=== PATIENT | female | born 1945 | race Caucasian/White ===

== ENCOUNTER 2017-01-17 19:36 | Emergency (ER) | payer MEDICARE, BC ==
[2017-01-17 19:43] VITALS: BP 145/109
[2017-01-17] MEDS ORDERED: traMADol 50 MG Tab PO ONE (20:26)
--- NOTE | 2017-01-17 20:32 | EDM.PDOC ---
ED HPI GENERAL MEDICAL PROBLEM - General Chief Complaint: Lower Extremity Injury/Pain Stated Complaint: [facility] Time Seen by Provider: 01/17/17 19:47 Source of Information: Reports: Patient, Family (), RN Notes Reviewed History Limitations: Reports: No Limitations - History of Present Illness INITIAL COMMENTS - FREE TEXT/NARRATIVE: The patient's history is somewhat limited, as she did not bring her paperwork that documents past medical history, nor her medication list. The patient states that she has had right knee pain since 2015. She was told in July 2015 that she had a Merida's cyst, however, this was a presumptive diagnosis, as no imaging study had been performed. She did not follow-up with her PCP or an Orthopedic Surgeon. She states that she went to the [facility] walk[facility] about one month ago. Again, no tests were done, but the patient was given prescriptions for a pain medication (whose name she cannot recall) and an anti-inflammatory medication ( whose name she cannot recall). She states that neither of these helped. She states that she has an appointment to see Dr. Plummer, and Orthopedic Surgeon in [place], but cannot get in to see him until mid-January. While the patient acknowledges that she has chronic right lower extremity pain, she states that it is much worse today. She states that she has pain running from her buttock to her toes. The pain is made worse with walking. She states that she does not flex at the hip. No recent injury. She states that the pain that she is experiencing today is the same pain that she had when she was told that she had a Merida's cyst. Ordinarily, the patient states that she goes grocery shopping only once a month , and leans on the shopping cart when she does so. Her last outage was about a week ago. right knee Pain Score (Numeric/FACES): 10 - Related Data Allergies Allergy/AdvReac Type Severity Reaction Status Date / Time codeine Allergy Hallucinati Verified 01/17/17 19:43 ons Home Meds: Home Meds traMADol [Ultram] 1 tab PO Q8H PRN #10 tablet 01/17/17 [Rx] Past Medical History HEENT History: Reports: Impaired Vision Other HEENT History: dentures Cardiovascular History: Reports: Aneurysm (AAA - being followed), High Cholesterol, Hypertension Gastrointestinal History: Reports: Colon Polyp, GERD Genitourinary History: Reports: Renal Calculus, Urinary Incontinence Musculoskeletal History: Reports: Osteoarthritis (knees) Psychiatric History: Reports: Addiction (alcohol), Anxiety Endocrine/Metabolic History: Reports: Diabetes, Type II, Hypothyroidism, Obesity /BMI 30+ - Infectious Disease History Infectious Disease History: Reports: Hepatitis C (treated and cured) - Past Surgical History HEENT Surgical History: Reports: Adenoidectomy, Cataract Surgery, Tonsillectomy Female Surgical History: Reports: Hysterectomy, Salpingo-Oophorectomy Endocrine Surgical History: Reports: Thyroidectomy (partial) Social & Family History - Family History Family Medical History: Noncontributory - Tobacco Use Smoking Status *Q: Former Smoker Years of Tobacco use: 49 Packs/Tins Daily: 3 Month Tobacco Last Used: Quit 2012 - Caffeine Use Caffeine Use: Reports: Coffee - Alcohol Use Alcohol Use History: Yes Date/Time of Last Drink Comment: Alcoholic. Last drink around 2012. - Recreational Drug Use Recreational Drug Use: No - Living Situation & Occupation Living situation: Reports: , with Spouse Occupation: Retired Review of Systems - Review of Systems Review Of Systems: See Below Constitutional: Reports: No Symptoms Eyes: Reports: No Symptoms Ears: Reports: No Symptoms Nose: Reports: No Symptoms Mouth/Throat: Reports: No Symptoms Respiratory: Reports: No Symptoms Cardiovascular: Reports: No Symptoms GI/Abdominal: Reports: No Symptoms Genitourinary: Reports: No Symptoms Musculoskeletal: Reports: Leg Pain (RLE, as per the HPI) Skin: Reports: No Symptoms Neurological: Reports: No Symptoms Psychiatric: Reports: No Symptoms ED EXAM, GENERAL - Physical Exam Exam: See Below Exam Limited By: No Limitations General Appearance: Alert, WD/WN, Anxious (became tearful) Extremities: Other (No obvious physical abnormality to the right lower extremity , such as swelling, erythema, ecchymosis, or abrasion. There is tenderness to palpation of the entire right lower extremity, including the thigh, all around the knee, the leg, and even the feet. Neurovascular status of the right lower extremity appears to be intact.) Neurological: Other (The patient did not tolerate an attempt to perform a straight leg raise to the right lower extremity.) Psychiatric: Anxious Course - Vital Signs Last Recorded V/S: Last Vital Signs Temp 36.0 C 01/17/17 19:38 Pulse 96 01/17/17 19:38 Resp 20 01/17/17 19:38 BP 145/109 H 01/17/17 19:38 Pulse Ox 98 01/17/17 19:38 - Orders/Labs/Meds Orders: Active Orders 24 hr Category Date Time Status traMADol [Ultram] Med 01/17/17 20:26 Once 100 mg PO ONETIME ONE - Re-Assessments/Exams Free Text/Narrative Re-Assessment/Exam: 01/17/17 20:27 The patient is complaining of pain to her entire right lower extremity, and is tender to the entire extremity, as well. These findings are NOT consistent with a Merida's cyst. They may be due to arthritis of the knee with radiation of the pain. I am recommending that she follow-up with Dr. Collins tomorrow morning. I do not see an indication for emergency imaging study tonight, as the patient denies any known injury. For tonight's purposes, I have ordered tramadol 100 mg, and will prescribe tramadol 50 mg. Departure - Departure Time of Disposition: 20:29 Disposition: Home, Self-Care 01 Condition: Good Clinical Impression: Pain of right lower extremity - Discharge Information Prescriptions: traMADol [Ultram] 1 tab PO Q8H PRN #10 tablet PRN Reason: Pain (Severe 7-10) Referrals: Pete Collins MD [Physician] - Marita Mcmahan DO [Primary Care Provider] - Forms: ED Department Discharge Additional Instructions: You were seen in the emergency room for pain to your entire right lower extremity, without injury. The cause of your pain is not clear. You have been started on the pain medicine tramadol. Take one tablet every 6-8 hours, as needed for pain. If you take tramadol, do not drive for 12 hours afterwards. Tramadol may cause constipation, so consider taking a stool softener. We strongly recommend you follow-up with the Orthopedic Surgeon Dr. Collins first thing in the morning, for further evaluation and treatment. If any other problems, please do not hesitate to return to the ER. - My Orders Last 24 Hours: My Active Orders 01/17/17 20:26 traMADol [Ultram] 100 mg PO ONETIME ONE - Assessment/Plan Last 24 Hours: My Active Orders 01/17/17 20:26 traMADol [Ultram] 100 mg PO ONETIME ONE
== END 2017-01-17 21:20 | disposition home or self-care (01) ==
LOC: JD.ED 19:36
DX: M79.661 Pain in right lower leg (principal); E78.00 Pure hypercholesterolemia, unspecified; I10 Essential (primary) hypertension; K21.9 Gastro-esophageal reflux disease without esophagitis; E03.9 Hypothyroidism, unspecified; E11.9 Type 2 diabetes mellitus without complications; E66.9 Obesity, unspecified; M19.90 Unspecified osteoarthritis, unspecified site; Z87.442 Personal history of urinary calculi; Z88.5 Allergy status to narcotic agent; Z87.891 Personal history of nicotine dependence; Z68.37 Body mass index [BMI] 37.0-37.9, adult; Z90.710 Acquired absence of both cervix and uterus; Z98.49 Cataract extraction status, unspecified eye; Z98.890 Other specified postprocedural states
CPT/HCPCS: 99284; A9270; 99283